=== PATIENT | male | born 1960 | race Caucasian/White ===

== ENCOUNTER 2016-11-26 21:18 | Emergency (ER) | payer SELFPAY ==
[~2016-11-26] VITALS: Ht 160 cm; Wt 68.2 kg
[2016-11-26 23:48] VITALS: BP 161/98
[2016-11-27] MEDS ORDERED: KETOROLAC TROMETHAMINE 60 MG/2 ML VIAL IM ONE
== END 2016-11-27 00:15 | disposition home or self-care (01) ==
LOC: EMS 21:20
DX: M54.5 Low back pain (principal); F10.10 Alcohol abuse, uncomplicated; I10 Essential (primary) hypertension; F17.210 Nicotine dependence, cigarettes, uncomplicated; Z88.0 Allergy status to penicillin
CPT/HCPCS: 99283; 99406